=== PATIENT | female | born 1945 | race Caucasian/White ===

== ENCOUNTER 2020-05-05 11:49 | Outpatient (CLI) | payer MEDICARE, SELFPAY ==
--- NOTE | ~2020-05-05 | XR_ITS ---
XR chest 2V DATE: 05/05/2020 12:10 INDICATION: Chest pain TECHNIQUE: PA and lateral views COMPARISON: None FINDINGS: There is cardiomegaly, with transverse colon thoracic ratio 14/25.7. There is aortic ectasi a and unfolding. There is mild discoid atelectasis or scarring at the right lung base. No pulmonary infiltrate or consolidation, pleural effusion or pulmonary vascular congestion or pneumo thorax is detected. No hilar or mediastinal enlargement. Multiple surgical clips overlie the right axillary area. The right breast shadow is smaller than the left. Diffuse osteopenia. There is scoliosis and degenerative spurring of the thoracic and lumbar spine. IMPRESSION: Cardiomegaly Aortic ectasia and unfolding No active pulmonary disease Probable right partial mastectomy and right axillary node dissection Reviewed, dictated and finalized at location B.
== END 2020-05-05 11:50 | disposition home or self-care (01) ==
PROVIDERS: PCP Internal Medicine; Visit Provider Physical Medicine & Rehabilitation Pain Medicine
DX: R07.9 Chest pain, unspecified (principal); R07.1 Chest pain on breathing; I51.7 Cardiomegaly; I77.819 Aortic ectasia, unspecified site
CPT/HCPCS: 71046

== ENCOUNTER 2021-06-04 10:47 | Outpatient (CLI) | payer MEDICARE, SELFPAY ==
--- NOTE | ~2021-06-04 | US_ITS ---
EXAMINATION: US venous doppler LE RT DATE: 06/04/2021 11:21 INDICATION: Right lower limb pain TECHNIQUE: Mccormack scale images without and with compression and Doppler images of the right lower extre mity veins were obtained. COMPARISON: None FINDINGS: The right common femoral vein, profunda femoral vein, femoral vein, popliteal vein, peronea l trunk, posterior tibial veins, and greater saphenous vein are patent. A Willis's cyst is noted which measures up to 2.1 cm. IMPRESSION: 1. Patent right lower extremity veins. No evidence of deep venous thrombosis. Reviewed, dictated and finalized at location A.
[2021-06-04 11:37] LABS: Basophils Percent Auto 0.4 % (0.2-1.2); Eosinophils Percent Auto 0.8 % (0-4.4); Hematocrit 38.9 % (37.0-47.0); Hemoglobin 12.6 g/dL (12.0-15.0); Immature Granulocyte Absolute 0.01 K/mm3 (0.00-0.031); Immature Granulocyte Percent A 0.2 % (0-0.5); Lymphocytes Absolute Auto 0.37 K/mm3 (0.9-3.2); Lymphocytes Percent Auto 7.3 % (18.3-44.2); Mean Corpuscular HGB Conc 32.4 g/dl (32-36); Mean Corpuscular Hemoglobin 27.7 pg (26-34); Mean Corpuscular Volume 85.5 fl (80-100); Mean Platelet Volume 9.2 fl (7.4-10.4); Monocytes Absolute Auto 0.1 K/mm3 (0.1-0.6); Monocytes Percent Auto 2.6 % (2.6-8.5); Neutrophils Absolute Auto 4.5 K/mm3 (1.3-6.7); Neutrophils Percent Auto 88.7 % (45.5-73.1); Platelet Count Result 210 k/mm3 (150-375); Red Blood Count 4.55 M/mm3 (4.2-5.4); Red Cell Distribution Width 15.4 % (11.5-14.5); White Blood Count 5.1 K/mm3 (4.5-10.0)
[2021-06-04 11:52] LABS: CRP < 0.5 mg/dL (<1.0); Rheumatoid Factor < 12.0 IU/ML (<12); Uric Acid 3.9 mg/dL (2.5-7.5)
[2021-06-04 12:13] LABS: Erythrocyte Sedimentation Rate 7 mm/hr (0-20)
== END 2021-06-04 10:48 | disposition home or self-care (01) ==
PROVIDERS: PCP Family Medicine; Visit Provider Orthopaedic Surgery
DX: M79.661 Pain in right lower leg (principal); M79.89 Other specified soft tissue disorders; M17.0 Bilateral primary osteoarthritis of knee; M06.9 Rheumatoid arthritis, unspecified
CPT/HCPCS: 36415; 84550; 85025; 85652; 86038; 86039; 86140; 86430; 93971

== ENCOUNTER 2021-08-25 00:31 | Day surgery (SDC) | payer MEDICARE, SELFPAY ==
[2021-08-10 14:51] VITALS: BMI 23.8
--- NOTE | 2021-08-25 09:31 | P.PNAN_ITS ---
Anes - Initial Pre Proc Eval Procedure: Operation Date: 08/25/21 11:00 Proposed Procedures p Screening Colonoscopy - Enmanuel Majano MD Date/Time: 08/25/21 09:31 Surgeon: Enmanuel Majano MD Pre Op Diagnosis: hx of colon polyps Patient Data Age: 75 Gender: F Height: 1.7 m Weight: 69 kg Allergies Allergy/AdvReac Type Severity Reaction Status Date / Time No Known Allergies Allergy Unknown Verified 08/25/21 10:01 Home Medications Medication Instructions Recorded Confirmed Type calcium carbonate 600 mg calcium 600 mg PO DAILY 11/29/19 07/16/21 History (1,500 mg) tablet pseudoephedrine HCl 30 mg tablet 30 mg PO Q4-6H PRN 11/29/19 07/16/21 History biotin 5 mg capsule 5 mg PO DAILY 12/11/20 07/16/21 History cetirizine 10 mg capsule 10 mg PO DAILY PRN 12/11/20 07/16/21 History multivitamin 1 tablet PO DAILY 12/11/20 07/16/21 History omega-3 fatty acids 1,000 mg 1,000 mg PO DAILY 12/11/20 07/16/21 History capsule esomeprazole magnesium 20 mg 20 mg PO DAILY 01/06/21 07/16/21 History capsule,delayed release oxybutynin chloride 10 mg See Rx Instructions .ROUTE 05/25/21 07/16/21 Rx tablet,extended release 24 hr .COMPLEX #90 tablet oxybutynin chloride 10 mg PO DAILY 08/10/21 08/10/21 History Patient hx anesthesia problems: none Family hx anesthesia problems: none Results Review: All pre-operative results and documents have been reviewed as part of the pre-operative evaluation. [facility] Past Medical History Medical History Breast cancer Depression GERD (gastroesophageal reflux disease) Osteoarthritis of right knee Rheumatoid arthritis Surgical History Surgical History History of section x 3 History of dilation and curettage History of lumpectomy Family History Family History Grandparent Breast cancer Mother Breast cancer Social History Social History (System 08/14/21 @ 13:23 by Hue Stauffer Smoking status: Never smoker Second hand tobacco smoke exposure: No Alcohol intake: current Alcohol use details: occasional Substance use: never Substance use type: does not use Living arrangements: alone Additional living arrangements comments: son is a trailer truck driver, is gone frequently but does have a room there Gender identity (if verbalized by the patient): Female Spiritual care concerns: No Anes - Eval Final PreProcedure Day of Procedure 08/25/21 09:31 Patient weight: normal Heart: regular rate and rhythm Lungs: clear to auscultation and normal air movement Airway: Mallampati scale class II Neurological: alert and oriented Last oral intake: >/= 8 hours ASA classification: III Emergent: no Anesthetic plan: proceed Anesthesia type and monitoring: general GIVS Results Review: All pre-operative results and documents have been reviewed as part of the pre-operative evaluation. Informed Consent: The patient's anesthetic plan and its attendant risks and benefits were discussed with the patient/family/POA. Questions were solicited and answers provided to the satisfaction of the patient/family/POA.
[2021-08-25 10:06] VITALS: BP 140/87; PULSE 60; RESP 16; TEMP 36.9; O2SAT 100
--- NOTE | 2021-08-25 10:11 | WPDGICN ---
Assessment and Plan Assessment and plan (1) History of colon polyps: Code(s): Z86.010 - Personal history of colonic polyps Status: Acute Assessment and Plan: Patient has a prior history of colon polyps. She presents today for follow-up examination. Further recommendations will be given after colonoscopy. GI Consult Note Consult date/time: 08/25/21 10:11 HPI: Deb Holland is a 75 year old female Presents for colonoscopy. Patient has a prior history of colon polyps removed by Dr. Zuluaga in [place]. Patient underwent colonoscopy at our institution fiber 6 years ago that was unremarkable she presents today for follow-up examination. She states that her current weight appetite bowel movements are normal. She denies abdominal pain. She has had no bleeding. Family history is noncontributory. Review of Systems Review of Systems: All systems reviewed & are unremarkable except as noted in HPI and below PMFSH Past Medical History Medical History Breast cancer Depression GERD (gastroesophageal reflux disease) Osteoarthritis of right knee Rheumatoid arthritis Surgical History Surgical History History of section x 3 History of dilation and curettage History of lumpectomy Family History Family History Grandparent Breast cancer Mother Breast cancer Social History Social History (System 08/14/21 @ 13:23 by Hue Rangel) Smoking status: Never smoker Second hand tobacco smoke exposure: No Alcohol intake: current Alcohol use details: occasional Substance use: never Substance use type: does not use Living arrangements: alone Additional living arrangements comments: son is a dedicated local truck driver, is gone frequently but does have a room there Gender identity (if verbalized by the patient): Female Spiritual care concerns: No Meds Home Medications and Allergies Home Medications Medication Instructions Recorded Confirmed Type calcium carbonate 600 mg calcium 600 mg PO DAILY 11/29/19 07/16/21 History (1,500 mg) tablet pseudoephedrine HCl 30 mg tablet 30 mg PO Q4-6H PRN 11/29/19 07/16/21 History biotin 5 mg capsule 5 mg PO DAILY 12/11/20 07/16/21 History cetirizine 10 mg capsule 10 mg PO DAILY PRN 12/11/20 07/16/21 History multivitamin 1 tablet PO DAILY 12/11/20 07/16/21 History omega-3 fatty acids 1,000 mg 1,000 mg PO DAILY 12/11/20 07/16/21 History capsule esomeprazole magnesium 20 mg 20 mg PO DAILY 01/06/21 07/16/21 History capsule,delayed release oxybutynin chloride 10 mg See Rx Instructions .ROUTE 05/25/21 07/16/21 Rx tablet,extended release 24 hr .COMPLEX #90 tablet oxybutynin chloride 10 mg PO DAILY 08/10/21 08/10/21 History Allergies Allergy/AdvReac Type Severity Reaction Status Date / Time No Known Allergies Allergy Unknown Verified 08/25/21 10:01 Vital Signs Vital Signs - 24 hr 08/25/21 10:06 Temperature 98.4 F Pulse Rate 60 Respiratory Rate 16 Blood Pressure 140/87 Pulse Oximetry 100 Exam Narrative: Physical exam reveals patient be alert. Vital signs stable. HEENT exam is unremarkable. Patient is anicteric. Lungs are clear to auscultation and percussion. Heart is without murmur or extra sounds. Abdominal exam bowel sounds are present soft nontender with no hepatosplenomegaly. Digital external rectal exam is normal.
[2021-08-25] MEDS: LACTATED RINGERS 1,000 ML 150 ML IV CONT (10:22)
[2021-08-25 11:11] VITALS: BP 113/76; PULSE 53; RESP 17; O2SAT 99
[2021-08-25 11:21] VITALS: BP 143/67; PULSE 53; RESP 19; O2SAT 100
[2021-08-25 11:31] VITALS: BP 164/85; PULSE 61; RESP 16; O2SAT 100
== END 2021-08-25 11:43 | disposition home or self-care (01) ==
PROVIDERS: PCP Family Medicine; Visit Provider Internal Medicine Gastroenterology
PROC: 0DJD8ZZ Inspection of Lower Intestinal Tract, Via Natural or Artificial Opening Endoscopic (ICD-10-PCS; CPT 45378; principal; 2021-08-25 11:00)
DX: Z12.11 Encounter for screening for malignant neoplasm of colon (principal); D12.2 Benign neoplasm of ascending colon; K64.8 Other hemorrhoids; K21.9 Gastro-esophageal reflux disease without esophagitis; M10.9 Gout, unspecified; F32.9 Major depressive disorder, single episode, unspecified; Z85.3 Personal history of malignant neoplasm of breast
CPT/HCPCS: 45385; 88305; J2704; J7120